=== PATIENT | female | born 1960 | race Caucasian/White ===

== ENCOUNTER 2018-03-05 19:57 | Inpatient (IN) | payer OTHER ==
[~2018-03-05] VITALS: Ht 167.6 cm; Wt 65.8 kg
[2018-03-06] MEDS ORDERED: MIRALAX 17 GM POWD.PACK PO PRN
[2018-03-06] MEDS ORDERED: DICYCLOMINE HCL 20 MG TABLET PO PRN
[2018-03-06] MEDS ORDERED: MAG HYDROX/AL HYDROX/SIMETH 30 ML LIQUID UDC PO PRN
[2018-03-06] MEDS ORDERED: LORAZEPAM 1 MG TABLET PO PRN ×2
[2018-03-06] MEDS ORDERED: ONDANSETRON 4 MG/2 ML VIAL IM PRN
[2018-03-06] MEDS ORDERED: LOPERAMIDE HCL 2 MG CAPSULE PO PRN ×2
[2018-03-06] MEDS ORDERED: LORAZEPAM 2 MG/1 ML VIAL IM PRN
[2018-03-06] MEDS ORDERED: ONDANSETRON ODT 4 MG TAB.RAPDIS SL PRN
[2018-03-06] MEDS ORDERED: diphenhydrAMINE 50 MG CAPSULE PO PRN
[2018-03-06] MEDS ORDERED: MAGNESIUM HYDROXIDE 30 ML LIQUID UDC PO PRN
[2018-03-06] MEDS ORDERED: ACETAMINOPHEN 325 MG TABLET PO PRN
[2018-03-06] MEDS: THIAMINE HCL 200 MG/2 ML VIAL IM ONE ×2 (01:38)
[2018-03-06 02:18] LABS: *AMPHETAMINE, URINE NEGATIVE (NEGATIVE); *BARBITURATE, URINE NEGATIVE (NEGATIVE); *CANNABINOID, URINE NEGATIVE (NEGATIVE); *COCCAINE, URINE NEGATIVE (NEGATIVE); *OPIATE, URINE NEGATIVE (NEGATIVE); *PHENCYCLIDINE SCREEN,URINE NEGATIVE (NEGATIVE)
[2018-03-06 02:26] LABS: BILIRUBIN,TOTAL 0.2 mg/dL (0.2-1.0); CREATININE 0.8 mg/dL (0.6-1.3); MAGNESIUM 2.2 mg/dL (1.8-2.4); POTASSIUM 3.6 mmol/L (3.5-5.1); TOTAL PROTEIN, SERUM 7.3 g/dL (6.4-8.2)
[2018-03-06] MEDS ORDERED: SERT50TA PO (02:27)
[2018-03-06 02:37] LABS: *URINE HCG, QUAL NEGATIVE (NEGATIVE)
[2018-03-06 02:43] LABS: BASOPHILS # (AUTO) 0.1 K/uL (0.0-8.0); BASOPHILS % (AUTO) 1.4 % (0.0-2.0); EOSINOPHILS # (AUTO) 0.3 K/uL (0.0-0.7); EOSINOPHILS % (AUTO) 4.7 % (0.0-7.0); HEMATOCRIT 40.9 % (31.2-41.9); HEMOGLOBIN 14.2 g/dL (10.9-14.3); LYMPHOCYTES # (AUTO) 2.1 K/uL (20.0-40.0); LYMPHOCYTES % (AUTO) 37.3 % (20.5-51.5); MEAN CORPUSCULAR HEMOGLOBIN 34.6 uug (24.7-32.8); MEAN CORPUSCULAR HGB CONC 35 g/dL (32.3-35.6); MEAN CORPUSCULAR VOLUME 99.6 fL (75.5-95.3); MONOCYTES # (AUTO) 0.3 K/uL (2.0-10.0); MONOCYTES % (AUTO) 4.8 % (0.0-11.0); NEUTROPHILS % (AUTO) 51.8 % (38.5-71.5); PLATELET COUNT (AUTO) 250 K/uL (179-408); WHITE BLOOD COUNT (AUTO) 5.8 K/uL (3.8-11.8)
[2018-03-06 04:00] VITALS: BP 102/75
[2018-03-06] MEDS: CLONIDINE HCL 0.1 MG TABLET PO PRN (04:27)
[2018-03-06 06:13] LABS: THYROID STIMULATING HORMONE 1.383 mIU/mL (0.358-3.740)
[2018-03-06 08:04] VITALS: BP 90/50
[2018-03-06] MEDS ORDERED: TUBERCULIN,PURIF.PROT.DERIV. 5 TU/0.1 ML TEST ID ONE (09:00)
[2018-03-06] MEDS ORDERED: 4 DAY TAPER VALIUM-SERENITY PROTOCOL PO PRN (10:00)
[2018-03-06] MEDS: BACLOFEN 20 MG TABLET PO PRN ×2 (10:42→21:28)
[2018-03-06] MEDS: IBUPROFEN 600 MG TABLET PO PRN (10:42)
[2018-03-06] MEDS: MULTIVITAMINS,THERAPEUTIC TABLET PO SCH (10:42)
[2018-03-06] MEDS: THIAMINE HCL 100 MG TABLET PO SCH (10:42)
[2018-03-06] MEDS: FOLIC ACID 1 MG TABLET PO SCH (10:42)
[2018-03-06] MEDS ORDERED: SENN25TA PO (11:13)
[2018-03-06] MEDS ORDERED: PSEU120T57 PO (11:16)
[2018-03-06] MEDS ORDERED: SODI650T PO (11:17)
[2018-03-06] MEDS ORDERED: SIME125T3 PO (11:18)
[2018-03-06] MEDS ORDERED: DIPH25CA83 PO (11:19)
[2018-03-06 12:00] VITALS: BP 92/49
[2018-03-06] MEDS: DIAZEPAM 10 MG TABLET PO SCH ×3 (13:00→21:28)
[2018-03-06 16:00] VITALS: BP 98/62
[2018-03-06 20:00] VITALS: BP 106/60
[2018-03-06] MEDS: TRAZODONE 50 MG TABLET PO PRN (21:28)
[2018-03-07] VITALS: BP 110/66
[2018-03-07 04:00] VITALS: BP 112/67
[2018-03-07 08:00] VITALS: BP 118/69
[2018-03-07] MEDS: IBUPROFEN 600 MG TABLET PO PRN (09:08)
[2018-03-07] MEDS: BACLOFEN 20 MG TABLET PO PRN (09:08)
[2018-03-07] MEDS: THIAMINE HCL 100 MG TABLET PO SCH (09:08)
[2018-03-07] MEDS: FOLIC ACID 1 MG TABLET PO SCH (09:08)
[2018-03-07] MEDS: MULTIVITAMINS,THERAPEUTIC TABLET PO SCH (09:08)
[2018-03-07] MEDS: DIAZEPAM 5 MG TABLET PO SCH ×3 (09:40→16:24)
[2018-03-07 10:11] LABS: HEPATITIS B SURFACE AG Negative (Negative)
[2018-03-07 12:40] VITALS: BP 90/57
[2018-03-07 16:00] VITALS: BP 124/74
[2018-03-07] MEDS: HYDROXYZINE PAMOATE 25 MG CAPSULE PO PRN (16:24)
[2018-03-07 20:00] VITALS: BP 121/69
[2018-03-07] MEDS: TRAZODONE 50 MG TABLET PO PRN (22:02)
[2018-03-08] MEDS: HYDROXYZINE PAMOATE 25 MG CAPSULE PO PRN (02:52)
[2018-03-08] MEDS: CLONIDINE HCL 0.1 MG TABLET PO PRN (02:52)
[2018-03-08 08:00] VITALS: BP 116/79
[2018-03-08] MEDS: MULTIVITAMINS,THERAPEUTIC TABLET PO SCH (08:42)
[2018-03-08] MEDS: FOLIC ACID 1 MG TABLET PO SCH (08:42)
[2018-03-08] MEDS: THIAMINE HCL 100 MG TABLET PO SCH (08:42)
[2018-03-08] MEDS: DIAZEPAM 5 MG TABLET PO SCH ×2 (08:42→20:14)
[2018-03-08 12:00] VITALS: BP 103/60
[2018-03-08 16:00] VITALS: BP 107/58
[2018-03-08 20:00] VITALS: BP 105/66
[2018-03-08] MEDS: IBUPROFEN 600 MG TABLET PO PRN (20:14)
[2018-03-08] MEDS: TRAZODONE 50 MG TABLET PO PRN (21:29)
[2018-03-09 08:00] VITALS: BP 109/70
[2018-03-09] MEDS: BACLOFEN 20 MG TABLET PO PRN (08:26)
[2018-03-09] MEDS: CLONIDINE HCL 0.1 MG TABLET PO PRN (08:26)
[2018-03-09] MEDS: THIAMINE HCL 100 MG TABLET PO SCH (08:26)
[2018-03-09] MEDS: MULTIVITAMINS,THERAPEUTIC TABLET PO SCH (08:26)
[2018-03-09] MEDS: FOLIC ACID 1 MG TABLET PO SCH (08:26)
[2018-03-09] MEDS ORDERED: DIAZEPAM 5 MG TABLET PO SCH (09:00)
[2018-03-09 12:00] VITALS: BP 105/66
[2018-03-09 16:00] VITALS: BP 114/69
[2018-03-09 20:00] VITALS: BP 127/82
[2018-03-09] MEDS: TRAZODONE 50 MG TABLET PO PRN (21:03)
[2018-03-10] VITALS: BP 122/78
[2018-03-10 04:00] VITALS: BP 119/72
[2018-03-10 08:00] VITALS: BP 143/85
[2018-03-10] MEDS: MULTIVITAMINS,THERAPEUTIC TABLET PO SCH (08:14)
[2018-03-10] MEDS: THIAMINE HCL 100 MG TABLET PO SCH (08:14)
[2018-03-10] MEDS: FOLIC ACID 1 MG TABLET PO SCH (08:14)
== END 2018-03-10 09:26 | disposition other institution (70) | DRG 772 ==
LOC: SRC 23:46
PROVIDERS: ADMIT Internal Medicine; ATTEND Internal Medicine
PROC: HZ2ZZZZ Detoxification Services for Substance Abuse Treatment (ICD-10-PCS; principal; 2018-03-05)
PROC: HZ31ZZZ Individual Counseling for Substance Abuse Treatment, Behavioral (ICD-10-PCS; 2018-03-09)
DX: F10.230 Alcohol dependence with withdrawal, uncomplicated (principal); I95.9 Hypotension, unspecified; F14.21 Cocaine dependence, in remission; F41.1 Generalized anxiety disorder; D75.89 Other specified diseases of blood and blood-forming organs; F17.210 Nicotine dependence, cigarettes, uncomplicated; Y90.6 Blood alcohol level of 120-199 mg/100 ml; I10 Essential (primary) hypertension; F32.9 Major depressive disorder, single episode, unspecified
CPT/HCPCS: 36415; 80307; 83690; 83735; 84443; 84703; 85025; 86580; 86592; 86705; 86803; 87340; 87806; A4663; G0480; J3411; Q0162